=== PATIENT | female | born 1980 | race African-American/Black ===

== ENCOUNTER 2025-05-29 00:28 | Emergency (ER) | payer MEDICAID, OTHER ==
[~2025-05-29] VITALS: Ht 175.3 cm; Wt 113.0 kg
[2025-05-29 00:31] VITALS: O2SAT 98
[2025-05-29] MEDS: ACETAMINOPHEN 325MG TABLET PO ONE (01:03)
[2025-05-29] MEDS: HYDRALAZINE 20MG/ML VIAL IV ONE (01:03)
[2025-05-29 01:20] LABS: CLARITY URINE CLEAR (CLEAR); COLOR URINE YELLOW (YELLOW); GLUCOSE URINE NEGATIVE (NEGATIVE); KETONES URINE NEGATIVE (NEGATIVE); LEUKOCYTE ESTERASE URINE NEGATIVE (NEGATIVE); NITRITE URINE NEGATIVE (NEGATIVE); OCCULT BLOOD URINE TRACE (NEGATIVE); PH URINE 6.5 (4.5-8.0); PROTEIN URINE 1+ (NEGATIVE); SPECIFIC GRAVITY URINE 1.005 (1.005-1.030); UROBILINOGEN URINE 0.2 E.U./dL (0.2-1.0)
[2025-05-29 01:34] LABS: *AMPHETAMINES SCREEN URINE NEGATIVE (NEGATIVE); *BARBITURATES SCREEN URINE NEGATIVE (NEGATIVE); *BENZODIAZEPINES SCREEN URINE NEGATIVE (NEGATIVE); *COCAINE SCREEN URINE NEGATIVE (NEGATIVE); CANNABINOID URINE SCREEN NEGATIVE (NEGATIVE); ECSTASY MDMA SCREEN URINE NEGATIVE (NEGATIVE); METHADONE URINE SCREEN NEGATIVE (NEGATIVE); OPIATES URINE SCREEN NEGATIVE (NEGATIVE); PHENCYCLIDINE URINE SCREEN NEGATIVE (NEGATIVE)
[2025-05-29 01:38] LABS: BASOPHILS % 1.0 % (0.0-2.0); EOSINOPHILS % 3.6 % (0.0-5.0); HEMATOCRIT. 34.4 % (36.0-48.0); HEMOGLOBIN. 11.5 g/dL (12.0-16.0); LYMPHOCYTES % 37.4 % (20.0-50.0); MEAN PLATELET VOLUME 8.0 fl (7.4-10.4); MONOCYTES % 8.4 % (2.0-8.0); NEUTROPHILS % 49.6 % (40.0-76.0); PLATELET 244 x1000/uL (130-400); RED BLOOD CELL COUNT 3.74 mill/uL (4.2-5.4); RED CELL DISTRIBUTION WIDTH 14.5 % (11.6-14.6)
[2025-05-29 01:45] LABS: INR 1.0
[2025-05-29 01:50] LABS: CREATININE 0.9 mg/dL (0.6-1.0); UREA NITROGEN BLOOD 9 mg/dL (9-23)
[2025-05-29 01:51] LABS: HCG SCREEN NEGATIVE
[2025-05-29 01:52] LABS: TROPONIN I HIGH SENSITIVITY 24 ng/L (3.0-34)
[2025-05-29 01:55] LABS: BACTERIA URINE TRACE; RBC URINE 0-2 /hpf (0-2); SQUAMOUS EPITHELIAL CELL URINE FEW /lpf (RARE/1+); WBC URINE 0-2 /hpf (0-2)
[2025-05-29] MEDS: POTASSIUM CHLORIDE 20MEQ/PACKET PO NR (03:08)
[2025-05-29 03:30] LABS: TROPONIN I HIGH SENSITIVITY 27 ng/L (3.0-34)
[2025-05-29] MEDS ORDERED: POTA-204 MT (03:38)
[2025-05-29 03:47] VITALS: BP 144/84; PULSE 91; RESP 19; TEMP 36.7; O2SAT 98
== END 2025-05-29 03:58 | disposition home or self-care (01) ==
LOC: ER 00:28 → CMPBEDREQ 07:31
DX: I10 Essential (primary) hypertension (principal); R07.89 Other chest pain; D64.9 Anemia, unspecified; E87.6 Hypokalemia; R06.02 Shortness of breath; J45.909 Unspecified asthma, uncomplicated; Z79.899 Other long term (current) drug therapy; Z91.148 Patient's other noncompliance with medication regimen for other reason
CPT/HCPCS: 80305; 80048; 81003; 80320; 84703; 83880; 85025; 85610; 85730; 84484; 36415; 71045; 93005; 96374; 99285; J0360; G0480